=== PATIENT | female | born 1960 | race Caucasian/White ===

== ENCOUNTER 2017-05-12 06:46 | Observation (INO) ==
[2017-05-12] MEDS ORDERED: ONDANSETRON 4 MG/2 ML VIAL IV ONE (06:56)
[2017-05-12] MEDS ORDERED: 0.9 % SODIUM CHLORIDE 1,000 ML IV ONE (06:56)
[2017-05-12] MEDS: HYDROmorphone 2 MG/ML SYRINGE IV PRN ×5 (07:10→23:56)
--- NOTE | 2017-05-12 07:28 | Emergency Department Note ---
Abdominal Pain HPI - General Chief Complaint: Abdominal Pain Stated Complaint: abdominal pain Time Seen by Provider: 05/12/17 06:55 Source: patient Mode of arrival: ambulatory Limitations: no limitations - History of Present Illness HPI Narrative: This patient is having recurrent abdominal pain nausea vomiting. Since her third ER visit for the same. I saw her yesterday and she improved some with treatment. However her white count gone from 16,000 22,000. An abdominal CT scan today before getting been completely normal ultrasound yesterday of her gallbladder was negative urine was negative could not find any source of infection. Last evening the patient elected to go home but during the night she got worse and so is back now in the morning. I did offer admission to her last night which she declined. However she is willing to be admitted now. - Related Data Home Medications Medication Instructions Recorded Confirmed albuterol sulfate HFA 90 2 puff INHALATION QID PRN g 02/18/15 03/27/17 mcg/actuation aerosol inhaler ketoconazole 2 % shampoo 1 applic TOPICAL .QD ml 02/18/15 03/27/17 Triamcinolone Cream 0.1% 15G 1 dose TOPICAL BID 09/30/15 03/27/17 [Kenalog Oint 0.1%] Previous Rx's Medication Instructions Recorded hydrocortisone 2.5 % topical cream 1 applic TOPICAL BID #30 g 06/28/15 Promethazine HCl [Phenergan] 0 mg [place] Q8HP PRN #10 supp.rect 12/17/15 diclofenac 1 % topical gel 4 g TOPICAL QID #100 g 08/24/16 Maalox/lidocaine 5 ml PO .Q4 #60 ml 12/28/16 sulfamethoxazole 800 1 tab PO BID #14 tab 01/01/17 mg-trimethoprim 160 mg tablet omeprazole 40 mg capsule,delayed 40 mg PO QDAY #90 cap 02/08/17 release nortriptyline 10 mg capsule 10 mg PO QHS #30 cap 03/13/17 ondansetron 8 mg disintegrating 8 mg PO QID PRN #120 tab 04/09/17 tablet Prochlorperazine Maleate 10 mg PO Q8HP PRN #10 tab 05/10/17 [Compazine] hydrocodone 10 mg-acetaminophen 1 tab PO .Q4-6H PRN #120 tab 05/11/17 325 mg tablet Allergies Allergy/AdvReac Type Severity Reaction Status Date / Time levofloxacin [From Levaquin] Allergy Intermediate Redness of Verified 05/10/17 09:46 Skin Oxycodone [From OxyContin] Allergy Unknown Vomiting Verified 05/10/17 09:46 Review of Systems All systems ED: reviewed and negative except as stated. Abdominal Pain PMH - Past Medical History Medical history: Reports: COPD, GERD, hyperlipidemia, other (hepatitis C, treated. Chronic pain. Irritable bowel) - Social History Smoking status: Current every day smoker Alcohol use: Reports: None Drug use: Reports: marijuana Physical Exam - General Limitations: no limitations General appearance: alert, in no apparent distress - Head Head exam: atraumatic, normocephalic - Eye Eye exam: Present: normal appearance - ENT ENT exam: normal exam - Neck Neck exam: Present: normal inspection - Chest Chest inspection: Present: normal inspection - Respiratory Respiratory exam: Present: normal lung sounds bilaterally - Cardiovascular Cardiovascular exam: Present: regular rate, normal rhythm, normal heart sounds - Abdominal Exam Abdominal exam: Present: soft, tenderness. Absent: distention, guarding, rebound, rigidity Abdominal tenderness: Present: epigastrium, moderate - Neurological Exam Neurological exam: Present: alert - Psychiatric Psychiatric exam: Present: normal affect, normal mood - Skin Skin exam: Present: warm, dry, intact Course Vital Signs Temperature 97.1 F 05/12/17 06:47 Pulse Rate 93 H 05/12/17 06:47 Respiratory Rate 19 05/12/17 06:47 Blood Pressure 192/114 05/12/17 06:47 Pulse Oximetry (%) 99 05/12/17 06:47 Temperature 97.1 F 05/12/17 06:47 Pulse Rate 79 05/12/17 08:15 Respiratory Rate 19 05/12/17 06:47 Blood Pressure 188/106 05/12/17 08:01 Pulse Oximetry (%) 94 05/12/17 08:15 Abdominal Pain - MDM Narrative Medical decision making narrative: This patient will go ahead and be admitted to the hospital for control of her nausea and vomiting. Her white count has come down which is reassuring. Also going treat her GERD with Protonix. - Lab Data Lab results reviewed: Yes I reviewed the patient's lab results. Result diagrams: 05/12/17 07:10 05/12/17 07:10 Lab Results 05/12/17 05/12/17 Range/Units 07:10 07:10 WBC 15.9 H (4.5-11.0) K/mcL RBC 5.32 H (4.00-5.20) M/mcL Hgb 15.3 H (12.0-15.0) g/dL Hct 46.2 (36.0-48.0) % MCV 86.8 (80.0-100.0) fL MCH 28.8 (26.0-34.0) pg MCHC 33.1 (31.0-36.0) g/dL RDW 14.7 H (11.5-14.5) % Plt Count 348 (140-440) K/mcL MPV 8.4 (7.4-10.4) fL Gran % 85.9 H (38.0-78.0) % Lymph % (Auto) 9.5 L (15.5-49.0) % [place] % (Auto) 4.1 (1.0-12.0) % Eos % (Auto) 0.3 (0.0-7.0) % Baso % (Auto) 0.2 (0.0-2.0) % Gran # 13.6 H (1.8-8.0) K/mcL Lymph # (Auto) 1.5 (1.5-4.8) K/mcL [place] # (Auto) 0.7 (0.1-0.9) K/mcL Eos # (Auto) 0 (0.0-0.7) K/mcL Baso # (Auto) 0 (0.0-0.3) K/mcL Sodium 137 (133-145) mmol/L Potassium 3.3 (3.3-5.1) mmol/L Chloride 99 (96-108) mmol/L Carbon Dioxide 19 L (22-30) mmol/L Anion Gap 19.0 H (8-16) BUN 17 (6-20) mg/dl Creatinine 0.7 (0.6-1.1) mg/dl GFR Calculation 97 Glucose 129 H (70-105) mg/dL Calcium 9.7 (8.6-10.4) mg/dl Total Bilirubin 0.9 (0.0-1.0) mg/dL AST 28 (0-37) U/l ALT 20 (0-40) U/l Alkaline Phosphatase 138 H (39-117) U/L Total Protein 8.0 (5.9-8.4) gm/dL Albumin 4.3 (3.2-5.2) gm/dL Globulin 3.7 (2.2-3.7) gm/dL Albumin/Globulin Ratio 1.2 (1.0-2.3) Disposition Pt seen by PATHOLOGY TECHNOLOGIST/PA only: No Clinical Impression: Gastroenteritis, Esophageal reflux, Chronic nausea, Abdominal pain Disposition: Xfer As Outpt/Obs ([facility]) Condition: Good Referrals: Jorge Johnson PA-C [Primary Care Provider] - Time of Disposition: 08:25
[2017-05-12 07:48] LABS: Basophils # (Auto) 0 K/mcL (0.0-0.3); Basophils % (Auto) 0.2 % (0.0-2.0); Eosinophils # (Auto) 0 K/mcL (0.0-0.7); Eosinophils % (Auto) 0.3 % (0.0-7.0); Granulocytes % (Auto) 85.9 % (38.0-78.0); Lymphocytes # (Auto) 1.5 K/mcL (1.5-4.8); Lymphocytes % (Auto) 9.5 % (15.5-49.0); Mean Cell Volume 86.8 fL (80.0-100.0); Mean Corpuscular HGB Conc 33.1 g/dL (31.0-36.0); Mean Corpuscular Hemoglobin 28.8 pg (26.0-34.0); Monocytes # (Auto) 0.7 K/mcL (0.1-0.9); Monocytes % (Auto) 4.1 % (1.0-12.0); Platelet Count 348 K/mcL (140-440); RBC 5.32 M/mcL (4.00-5.20); Red Cell Distribution Width 14.7 % (11.5-14.5)
[2017-05-12 08:10] LABS: ALT/SGPT 20 U/l (0-40); Albumin 4.3 gm/dL (3.2-5.2); Albumin/Globulin Ratio 1.2 (1.0-2.3); Alkaline Phosphatase 138 U/L (39-117); Blood Urea Nitrogen 17 mg/dl (6-20)
[2017-05-12] MEDS ORDERED: PANTOPRAZOLE 40 MG VIAL IV ONE (08:21)
[2017-05-12 08:39] LABS: Appearance,Urine CLEAR; Bacteria,Urine 0 /hpf (0); Bilirubin,Urine NEG (NEG); Color,Urine STRAW; Glucose,Urine (UA) NEGATIVE (NEG); Leukocyte Esterase,Urine NEG /uL (NEG); Mucus,Urine FEW /hpf (0); Nitrate,Urine NEG (NEG); Protein,Urine NEG (NEG); Urine Blood 0.03 mg/dL (<0.03); Urine RBC 1 /hpf (0-1); Urine Squamous Epithelial Cell < 1 /hpf (0-4); Urine Transitional Epi Cells < 1 /hpf (0-2); Urine WBC 2 /hpf (0-4); Urobilinogen,Urine NEG (NEG)
[2017-05-12] MEDS ORDERED: ACETAMINOPHEN 325 MG TABLET PO PRN (12:13)
[2017-05-12] MEDS ORDERED: HYDROcodone/APAP 5/325MG TABLET PO PRN (12:13)
[2017-05-12] MEDS ORDERED: MAG HYDROX/AL HYDROX/SIMETH 30 ML ORAL.SUSP PO PRN (12:22)
--- NOTE | 2017-05-12 12:33 | Internal Med History&Physical ---
Medical - H&P: HPI Patient information: Note initiated : 05/12/17 at 12:28 pm Service Date, if different from initiated Date: [] Patient: Maddy Stubbs a 57 y/o F admitted on 05/12/17 for abdominal pain. Chief Complaint: persistent nausea, vomiting, abdominal pain History of present illness: Ms. Stubbs is a 57 year old F with a long history of intermittent abdominal pain associated with nausea and vomiting. She states this is been ongoing for about 10 years with periodic episodes of extreme nausea associated with vomiting and abdominal pain. She is on Zofran chronically. She says she's been worked up by gastroenterology in the past, recalls a gastric emptying study and think she's had an EGD. Patient's current symptoms started about Sunday with extreme nausea vomiting and pain. She also felt chilled. She was having abdominal cramps from the emesis and now is also complaining of some abdominal wall pain. She was seen in the emergency department yesterday, that was her second visit, she had white count of 22,000 which increased from 15,000 at her first visit. She has had imaging including CT scan of the abdomen as well as right upper quadrant ultrasound without significant pathologic findings. Hospitalization was recommended yesterday, but she declined. She returns this morning with persistent symptoms. She received further antiemetics and pain medications in the ED, however still was symptomatic and was referred for hospitalization. Patient denies any hematemesis. She's not had bowel movements, though has not had much by mouth intake in last few days. She complains of chronically feeling dehydrated. No chest pain, dyspnea, cough or sputum production. No headache or vision changes. No focal neurologic symptoms. 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 She notes that her symptoms may be related to stress. She also has outbreak of vesicular eruption on the right buttock associated with stress ( apparently tested negative for VZV while at [facility] being treated for hepatitis C), these do respond to acyclovir. Not currently having any eruption. Location: Generalized abdominal. Severity: Moderate to severe. Duration: Ongoing, constant since Sunday. Alleviating factors: Briefly alleviated with Zofran. Review of systems: Except as noted in history present illness, the remainder of a 10 point review of systems is negative. 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, left ankle Irritable bowel, the patient's not quite sure this diagnosis fits her symptoms Mild L2 compression fracture noted on CT earlier this week Intermittent vesicular outbreak on the right buttock dermatome Surgical history: Status post ANUEL/BSO Pertinent family history: No history of GI illness Smoking status: Current every day smoker (one half pack per day) Drug use: marijuana (rarely, every 1 to 6 months) Alcohol use: none Medical - H&P: Meds Home Medications Medication Instructions Recorded Confirmed Type albuterol sulfate HFA 90 2 puff INHALATION QID PRN g 02/18/15 05/12/17 History mcg/actuation aerosol inhaler ketoconazole 2 % shampoo 1 applic TOPICAL .QD ml 02/18/15 05/12/17 History hydrocortisone 2.5 % topical cream 1 applic TOPICAL BID #30 g 06/28/15 05/12/17 Rx Triamcinolone Cream 0.1% 15G 1 dose TOPICAL BID 09/30/15 05/12/17 History [Kenalog Oint 0.1%] Promethazine HCl [Phenergan] 0 mg [place] Q8HP PRN #10 supp.rect 12/17/15 05/12/17 Rx diclofenac 1 % topical gel 4 g TOPICAL QID #100 g 08/24/16 05/12/17 Rx Maalox/lidocaine 5 ml PO .Q4 #60 ml 12/28/16 05/12/17 Rx sulfamethoxazole 800 1 tab PO BID #14 tab 01/01/17 05/12/17 Rx mg-trimethoprim 160 mg tablet omeprazole 40 mg capsule,delayed 40 mg PO QDAY #90 cap 02/08/17 05/12/17 Rx release nortriptyline 10 mg capsule 10 mg PO QHS #30 cap 03/13/17 05/12/17 Rx ondansetron 8 mg disintegrating 8 mg PO QID PRN #120 tab 04/09/17 05/12/17 Rx tablet Prochlorperazine Maleate 10 mg PO Q8HP PRN #10 tab 05/10/17 05/12/17 Rx [Compazine] hydrocodone 10 mg-acetaminophen 1 tab PO .Q4-6H PRN #120 tab 05/11/17 05/12/17 Rx 325 mg tablet Allergies Allergy/AdvReac Type Severity Reaction Status Date / Time levofloxacin [From Levaquin] Allergy Intermediate Redness of Verified 05/10/17 09:46 Skin Oxycodone [From OxyContin] Allergy Unknown Vomiting Verified 05/10/17 09:46 Medical - H&P: Exam - Constitutional Vitals: Temp Pulse Resp BP Pulse Ox 97.4 F 84 16 148/76 97 05/12/17 11:11 05/12/17 09:21 05/12/17 11:11 05/12/17 11:11 05/12/17 11:11 General appearance: average body habitus, no acute distress - Head Head exam: Present: atraumatic, normal inspection - Eye Eye exam: Present: PERRL. Absent: conjunctival injection, scleral icterus - ENT ENT exam: Present: mucous membranes dry, normal oropharynx - Neck Neck exam: Present: full ROM. Absent: meningismus, thyromegaly - Respiratory Respiratory exam: Present: CTAB. Absent: accessory muscle use, respiratory distress - Cardiovascular Cardiovascular exam: Present: normal rate and rhythm. Absent: diastolic murmur , gallop, systolic murmur Additional comments: no lower extremity edema - GI/Abdominal GI/Abdominal exam: Present: normal bowel sounds, soft, tenderness (mild-to- moderate diffuse tenderness). Absent: guarding, organomegaly, rebound - Extremities Exam Extremities exam: Present: full ROM. Absent: joint swelling, normal inspection (fusion of right wrist) - Back Exam Back exam: Absent: CVA tenderness (L), CVA tenderness (R) - Neurological Exam Neurological exam: Present: alert, CN II-XII intact, oriented X3. Absent: motor sensory deficit - Psychiatric Psychiatric exam: Present: normal affect, normal mood - Skin Skin exam: Present: dry, warm. Absent: cyanosis, vesicles Medical - H&P: Reslt - Labs CBC & Chem 7: 05/12/17 07:10 05/12/17 07:10 Labs: Short CBC 05/12/17 Range/Units 07:10 WBC 15.9 H (4.5-11.0) K/mcL Hgb 15.3 H (12.0-15.0) g/dL Hct 46.2 (36.0-48.0) % Plt Count 348 (140-440) K/mcL BMP 05/12/17 07:10 Sodium 137 Potassium 3.3 Chloride 99 Carbon Dioxide 19 L BUN 17 Creatinine 0.7 Glucose 129 H Calcium 9.7 Liver Function 05/12/17 Range/Units 07:10 Total Bilirubin 0.9 (0.0-1.0) mg/dL AST 28 (0-37) U/l ALT 20 (0-40) U/l Alkaline Phosphatase 138 H (39-117) U/L Albumin 4.3 (3.2-5.2) gm/dL Urine 05/12/17 Range/Units 08:03 Urine Color Straw Urine Appearance Clear Urine pH 8.0 (5.0-9.0) Ur Specific [place] 1.010 (1.000-1.035) Urine Protein Neg (NEG) mg/dL Urine Glucose (UA) Negative (NEG) mg/dL - Imaging and Cardiology CT scan - abdomen Status: image reviewed by me Additional comments: From 05/10 IMPRESSION: 1. No cause identified for abdominal pain or leukocytosis. Abdomen and pelvic structures are unremarkable 2. Mild L2 compression fracture - indeterminate chronicity. It has benign features Medical - H&P: A/P - Narrative A/P Narrative: 57-year-old female with chronic nausea, intermittent outs of worsening with emesis and abdominal pain, presents with similar. Severity is more severe than usual. Still having significant emesis and abdominal pain, particular associated with retching which seems to be more abdominal wall in nature. She' s had no hematemesis. She's been evaluated by gastroenterology in the past, apparently has had a normal gastric emptying study, she thinks she had an EGD. She does have known GERD, does not always take her omeprazole. She rarely uses marijuana. Abdominal pain, nausea, vomiting. Etiology unclear, may be stress related as she has significant psychosocial stressors currently. There may be a contribution from her reflux disease and inconsistent use of PPI. She does have leukocytosis, however lactate is normal, imaging is been without significant findings. This may be stress response due to her nausea and vomiting. Currently do not suspect a surgical cause of her symptoms. We'll also rule out adrenal insufficiency Plan: -Hospitalized in observation -IV fluids, antiemetics, acid suppression -Pain control -Clear liquid diet, advance as tolerated -Check a.m. cortisol -Follow electrolytes, trend white count Reactive airways disease. Currently lungs are clear and no evidence of exacerbation. Plan: As needed bronchodilators Gastroesophageal reflux disease. May be contributing to above. Plan: Intravenous PPI, Maalox when necessary Prophylaxis: Lovenox, PPI CODE STATUS: Full code Medical - H&P: Qual - Stroke Symptom Onset Unknown: No - VTE Deep Vein Thrombosis/Pulmonary Embolism Present on Admission: No
[2017-05-12] MEDS: 0.9 % SODIUM CHLORIDE 1,000 ML IV SCH ×2 (12:36→20:41)
[2017-05-12] MEDS: METOCLOPRAMIDE 10 MG/2 ML VIAL IV PRN (12:50)
[2017-05-12] MEDS: 0.9 % SODIUM CHLORIDE 10 ML SYRINGE IV SCH ×2 (13:33→22:46)
[2017-05-12] MEDS: PROCHLORPERAZINE 10 MG/2 ML VIAL IV PRN ×2 (14:34→19:43)
[2017-05-12] MEDS ORDERED: ONDANSETRON 4 MG/2 ML VIAL ONE (16:37)
[2017-05-12] MEDS ORDERED: HYDROmorphone 2 MG/ML SYRINGE ONE (16:37)
[2017-05-12] MEDS: PANTOPRAZOLE 40 MG VIAL IV SCH (16:49)
[2017-05-12] MEDS ORDERED: NORTRIPTYLINE 10 MG CAPSULE PO SCH (21:00)
[2017-05-12] MEDS: ONDANSETRON 4 MG/2 ML VIAL IV PRN (23:56)
[2017-05-13] MEDS: METOCLOPRAMIDE 10 MG/2 ML VIAL IV PRN (02:46)
[2017-05-13] MEDS: HYDROmorphone 2 MG/ML SYRINGE IV PRN ×2 (02:55→07:08)
[2017-05-13] MEDS: 0.9 % SODIUM CHLORIDE 1,000 ML IV SCH (04:32)
[2017-05-13] MEDS: 0.9 % SODIUM CHLORIDE 10 ML SYRINGE IV SCH (05:13)
[2017-05-13 06:03] LABS: Mean Cell Volume 86.6 fL (80.0-100.0); Mean Corpuscular HGB Conc 34.2 g/dL (31.0-36.0); Mean Corpuscular Hemoglobin 29.6 pg (26.0-34.0); Platelet Count 286 K/mcL (140-440); RBC 4.62 M/mcL (4.00-5.20); Red Cell Distribution Width 14.3 % (11.5-14.5)
[2017-05-13 06:21] LABS: Blood Urea Nitrogen 10 mg/dl (6-20); Magnesium 1.7 mg/dL (1.6-2.5)
[2017-05-13 06:33] LABS: Cortisol,AM 9.5 ug/dl (6.2-19.4)
[2017-05-13 07:00] LABS: Band Neutrophils % 2 % (0-10); Eosinophils % (Manual) 2 % (0-7); Lymphocytes % 17 % (15-49); Monocytes % (Manual) 11 % (1-12); Platelet Estimate NORMAL (NORMAL); RBC Morphology NORMAL (NORMAL); Segmented Neutrophils % 68 % (38-78)
[2017-05-13] MEDS: PANTOPRAZOLE 40 MG VIAL IV SCH (07:00)
[2017-05-13] MEDS: ONDANSETRON 4 MG/2 ML VIAL IV PRN (07:07)
[2017-05-13] MEDS ORDERED: POTASSIUM CHLORIDE 40 MEQ in DEXTROSE 5% IN WATER 500 ML IV ONE (07:19)
[2017-05-13] MEDS ORDERED: ENOXAPARIN 40 MG/0.4 ML SYRINGE SQ SCH (09:00)
[2017-05-13] MEDS ORDERED: COSYNTROPIN 0.25 MG VIAL IV ONE (09:32)
[2017-05-13] MEDS ORDERED: FLU VACC QS2017-18 36MOS UP/PF 60 MCG/0.5 ML SYRINGE IM ONE (10:00)
--- NOTE | 2017-05-13 12:39 | Discharge Summary ---
Medical - DS: Prov Patient information: Note initiated : 05/13/17 at 12:37 pm Service Date, if different from initiated Date: [] Patient: Maddy Stubbs 57 y/o F admitted on 05/12/17 for abdominal pain. Chief Complaint: Persistent nausea, vomiting Date of admission: 05/12/17 09:35 Discharge date: 05/13/17 Primary care physician: Jorge Johnson Admitting clinician: Rosa Cartagena Attending physician on admission: Rosa Cartagena Consults: 05/12/17 08:28 Consult to Physician [CONS] Stat Comment: Consulting Provider: Rosa Cartagena Reason For Exam: Physician to Consult Attending physician on discharge: Rosa Cartagena Discharging clinician: Rosa Cartagena Medical - DS: Meds - Discharge Medications Active and Home Medications: Home Medications albuterol sulfate HFA 90 mcg/actuation aerosol inhaler 2 puff INHALATION QID PRN g 02/18/15 [History Confirmed 05/12/17 Last Taken Unknown] ketoconazole 2 % shampoo 1 applic TOPICAL .QD ml 02/18/15 [History Confirmed Last Taken Unknown] hydrocortisone 2.5 % topical cream 1 applic TOPICAL BID #30 g 06/28/15 [Rx Confirmed 05/12/17 Last Taken Unknown] Triamcinolone Cream 0.1% 15G [Kenalog Cream 0.1%] 1 dose TOPICAL BID 09/30/15 [ History Confirmed 05/12/17 Last Taken Unknown] Promethazine HCl [Phenergan] 0 mg [place] Q8HP PRN #10 supp.rect 12/17/15 [Rx Confirmed 05/12/17 Last Taken Unknown] diclofenac 1 % topical gel 4 g TOPICAL QID #100 g 08/24/16 [Rx Confirmed Last Taken Unknown] Maalox/lidocaine 5 ml PO .Q4 #60 ml 12/28/16 [Rx Confirmed 05/12/17 Last Taken Unknown] sulfamethoxazole 800 mg-trimethoprim 160 mg tablet 1 tab PO BID #14 tab [Rx Confirmed 05/12/17 Last Taken Unknown] omeprazole 40 mg capsule,delayed release 40 mg PO QDAY #90 cap 02/08/17 [Rx Confirmed 05/12/17 Last Taken Unknown] nortriptyline 10 mg capsule 10 mg PO QHS #30 cap 03/13/17 [Rx Confirmed Last Taken Unknown] ondansetron 8 mg disintegrating tablet 8 mg PO QID PRN #120 tab 04/09/17 [Rx Confirmed 05/12/17 Last Taken Unknown] Prochlorperazine Maleate [Compazine] 10 mg PO Q8HP PRN #10 tab 05/10/17 [Rx Confirmed 05/12/17 Last Taken Unknown] hydrocodone 10 mg-acetaminophen 325 mg tablet 1 tab PO .Q4-6H PRN #120 tab 05/11 [Rx Confirmed 05/12/17 Last Taken Unknown] Medical - DS: Hosp Hospital course: Mr. Stubbs is a 57 year old F Presented with persistent nausea and vomiting. She has episodes of repeated nausea vomiting and abdominal pain. She's been evaluated by GI in the past, does have a history of GERD and is inconsistent times and taking her omeprazole. She's received hydration, pain medications and several rounds of antibiotics in the emergency department but was still unable to keep down oral intake. She was hospitalized in observation status, treated with Compazine, Reglan, Zofran intermittently along with hydration and clear liquid diet. By the morning of discharge, her symptoms are resolved and she is feeling well. She tolerated a full liquid lunch without problems. As noted, the patient has had evaluation for symptoms in the past. It may impart be stress related. However for completeness, morning cortisol was checked which was in the low normal range of 6. She underwent ACTH stimulation test which did stimulate to normal cortisol values, indicating normal adrenal function. She may benefit from further gastroenterology evaluation, as the symptoms have been ongoing for some time and it's been a while since she has been seen by sane nurse. Patient's potassium was 2.9 on the morning of 05/13, which was repleted before discharge. Discharge diagnosis: Intractible nausea and vomiting Pertinent studies/significant findings: None Complications: None - Time Spent with Patient Total time spent providing and/or coordinating discharge services: Greater than 30 minutes Medical - DS: Exam - Constitutional Vitals: Vital Signs Temp Pulse Resp BP Pulse Ox 05/13/17 11:09 98.6 F 16 136/89 98 05/13/17 07:10 98.1 F 16 129/84 96 05/13/17 04:00 97.3 F 73 16 116/73 94 05/13/17 00:00 97.5 F 79 16 130/83 93 05/12/17 20:00 98.2 F 77 16 122/84 97 05/12/17 19:22 98.2 F 77 16 122/84 97 05/12/17 15:27 97.9 F 16 138/86 97 Intake and Output 05/12/17 05/13/17 05/13/17 21:59 05:59 13:59 Intake Total 1000 / 1000 1161 / 1161 Balance 1000 / 1000 1161 / 1161 Intake: IV 1000 / 1000 981 / 981 Sodium Chloride 0.9% 1,000 ml @ 1000 / 1000 981 / 981 125 mls/hr IV .Q8H [facility] Rx#: [id number] Oral 0 / 0 180 / 180 Other: Meal Gelatin Percent of Meal Consumed 100% Feeding Ability Independent # Voids 1 Weight 133 lb 6.4 oz - Other Additional findings: General: In no acute distress Chest: Clear to auscultation, unlabored respirations Cardiovascular: Regular, no edema Abdomen: Soft, nontender, normal active bowel sounds Neuro: Awake, alert, oriented 3, moves all extremities, nonfocal Medical - DS: Data Procedures and tests throughout hospitalization: None Labs on day of discharge: Labs from last 24 hours 05/13/17 05/13/17 05/13/17 11:24 10:53 09:47 WBC RBC Hgb Hct MCV MCH MCHC RDW Plt Count MPV Total Counted Seg Neutrophils % Band Neutrophils % Lymphocytes % Monocytes % (Manual) Eosinophils % (Manual) Platelet Estimate RBC Morphology Sodium Potassium Chloride Carbon Dioxide Anion Gap BUN Creatinine GFR Calculation Glucose Calcium Magnesium Random Cortisol 3.4 Cortisol AM Sample Cortisol Resp 30 Min 27.8 Cortisol Resp 60 Min 34.5 05/13/17 05/13/17 05/13/17 09:47 04:48 04:48 WBC 9.9 RBC 4.62 Hgb 13.7 Hct 40.0 MCV 86.6 MCH 29.6 MCHC 34.2 RDW 14.3 Plt Count 286 MPV 8.3 Total Counted 100 Seg Neutrophils % 68 Band Neutrophils % 2 Lymphocytes % 17 Monocytes % (Manual) 11 Eosinophils % (Manual) 2 Platelet Estimate Normal RBC Morphology Normal Sodium 135 Potassium 2.9 L* Chloride 98 Carbon Dioxide 23 Anion Gap 14.0 BUN 10 Creatinine 0.6 GFR Calculation 102 Glucose 87 Calcium 8.5 L Magnesium 1.7 Random Cortisol Cancelled Cortisol AM Sample 9.5 Cortisol Resp 30 Min Cancelled Cortisol Resp 60 Min Medical - DS: A/P - Patient/Caregiver Discharge Instructions Activity: resume usual activities as tolerated Diet: Regular Diet Additional Instructions: Ask your PCP if you should be re-evaluated by gastroenterology. - Follow up Plan Follow up with: Jorge Johnson PA-C [Primary Care Provider] - (in 1-2 weeks) Disposition: Home, Self-Care Prognosis: Good Rehab Potential: Good Overall status at discharge: patient is back to baseline Medical - DS: Qual - VTE Deep Vein Thrombosis/Pulmonary Embolism Present on Admission: No
== END 2017-05-13 13:30 | disposition home or self-care (01) ==
LOC: ED 06:46 → MEDSUR 06:46
PROVIDERS: ADMIT Internal Medicine; ATTEND Internal Medicine